=== PATIENT | male | born 1955 | race Caucasian/White ===

== ENCOUNTER → 2017-01-21 | Outpatient (CLI) | payer MEDICARE | LOC: EMI 13:11 | DX: M25.551 Pain in right hip (principal); M25.552 Pain in left hip; M87.9 Osteonecrosis, unspecified; M16.11 Unilateral primary osteoarthritis, right hip | CPT/HCPCS: 73721 ==

== ENCOUNTER 2021-04-18 14:35 | Emergency (ER) | payer MEDICARE ==
[~2021-04-18 14:35] MED LIST: ALL DAY ALLERGY10 M3 PO; ASPIRIN CHEWABL81 MG PO; CATAPRES 0.1MG0.1 MG PO; CETIRIZINE HCL10 M1 PO; COZAAR50 MG PO; DESYREL 50 MG T50 MG PO; ELIQUIS 2.5 MG2.5 MG PO; FLEXERIL 10 MG10 MG PO; HYDROCHLOROTHIA25 MG PO; HYDROCODON-ACE1 EAC6 PO; LEVOTHYROXINE112 MCG PO; LOPRESSOR50 MG PO; LORTAB 5-325 M1 EACH PO; LOSARTAN-HCTZ1 EAC2 PO; METOPROLOL TART50 MG PO; MOBIC15 MG PO; MOBIC7.5 MG PO; NORCO 10-325 T1 EACH PO; PERCOCET 10-321 EACH PO; PRAVACHOL20 MG PO; PRAVASTATIN SOD20 MG PO; PROMETHAZINE HC25 M1 PO; PROTONIX40 MG PO; ROXICODONE15 MG PO; SYNTHROID100 MCG PO; ZANAFLEX4 MG PO
[2021-04-18] MEDS ORDERED: HYDROCODON-ACE1 EAC4 PO ×2 (18:36→19:30)
== END 2021-04-18 19:32 | disposition home or self-care (01) ==
LOC: ER1 14:35
DX: M25.551 Pain in right hip (principal); I10 Essential (primary) hypertension; Z88.5 Allergy status to narcotic agent
CPT/HCPCS: 72192; 73502; 96374; 96375; 96376; 99284; J2270; J2405